=== PATIENT | male | born 1945 | race African-American/Black ===

== ENCOUNTER 2018-10-26 12:23 | Emergency (ER) | payer MEDICARE ==
[~2018-10-26] VITALS: Ht 188 cm; Wt 84.0 kg
[2018-10-26 13:05] VITALS: BP 150/50
== END 2018-10-26 18:50 | disposition home or self-care (01) ==
LOC: ER 15:01
DX: E10.649 Type 1 diabetes mellitus with hypoglycemia without coma (principal); E10.22 Type 1 diabetes mellitus with diabetic chronic kidney disease; I12.0 Hypertensive chronic kidney disease with stage 5 chronic kidney disease or end stage renal disease; N18.6 End stage renal disease; Z99.2 Dependence on renal dialysis; Z79.4 Long term (current) use of insulin; Z88.8 Allergy status to other drugs, medicaments and biological substances
CPT/HCPCS: 82962; 99283